=== PATIENT | female | born 1945 ===

== ENCOUNTER 2016-09-28 07:35 | Day surgery (SDC) | payer OTHER ==
[2016-08-14 20:19] VITALS: BMI 32.3
[2016-09-28 09:18] LABS: POTASSIUM 4.5 mmol/L (3.6-5.2)
[2016-09-28 09:22] LABS: CALCIUM 9.6 mg/dl (8.6-10.4)
[2016-09-28] MEDS ORDERED: Propofol 10 mg/ml Inj (20 ML) ONE (10:24)
[2016-09-28] MEDS ORDERED: Lidocaine Hydrochloride 5 ML INJ ONE (10:25)
[2016-09-28] MEDS ORDERED: Sodium Chloride 0.9% 1,000 ML IV SCH (10:45)
[2016-09-28 16:13] VITALS: O2SAT 100
[2016-09-28 16:17] VITALS: BP 159/64; PULSE 68
[2016-09-28 16:19] VITALS: RESP 17; TEMP 98.2
== END 2016-09-28 12:05 | disposition home or self-care (01) ==
LOC: C.ENDO 07:35
PROVIDERS: ATTEND Internal Medicine Gastroenterology
DX: D12.2 Benign neoplasm of ascending colon (principal); K64.1 Second degree hemorrhoids; K59.00 Constipation, unspecified
CPT/HCPCS: 36415; 45380; 80048; 82948; 88305; J2704; J7040